=== PATIENT | female | born 1985 ===

== ENCOUNTER 2018-07-14 14:37 | Emergency (ER) | payer OTHER ==
--- NOTE | 2018-07-14 14:47 | C.PDOC ---
History Of Present Illness 32 y/o female, [employer] employee, presents to the ER for evaluation of right hand laceration sustained while she was working today. Patient states that she was changing an [employer] pump when it cut her right hand 1st digit. Hemostasis achieved at the time of injury. She notes that she went to employee health where she received Bacitracin and band aid. She was told to come to the ER for tetanus vaccination. Unknown last tetanus. Denies having weakness, numbness, parasthesias, and lacerations elsewhere. Time Seen by Provider: 07/14/18 14:42 Chief Complaint (Nursing): Abnormal Skin Integrity History Per: Patient History/Exam Limitations: no limitations Onset/Duration Of Symptoms: Hrs Current Symptoms Are (Timing): Still Present Severity: Moderate Past Medical History Reviewed: Historical Data, Nursing Documentation, Vital Signs - Medical History PMH: No Chronic Diseases Other Surgeries: Hx of surgeries Family History: States: No Known Family Hx Review Of Systems Except As Marked, All Systems Reviewed And Found Negative. Constitutional: Negative for: Fever, Chills Eyes: Negative for: Vision Change Cardiovascular: Negative for: Chest Pain, Palpitations, Light Headedness Respiratory: Negative for: Cough, Shortness of Breath Gastrointestinal: Negative for: Nausea, Vomiting, Abdominal Pain Musculoskeletal: Negative for: Neck Pain, Back Pain, Hand Pain Skin: Positive for: Other (right hand laceration) Neurological: Negative for: Weakness, Numbness, Headache, Dizziness Physical Exam - Physical Exam Appears: Well, Non-toxic, No Acute Distress Skin: Normal Color, Warm, Dry, Other ( 1 cm superficial laceration to volar aspect of distal phalanx of right hand 1st digit) Head: Atraumatic, Normacephalic Eye(s): bilateral: Normal Inspection, PERRL, EOMI Nose: Normal Oral Mucosa: Moist Neck: Normal, Normal ROM, Supple Chest: Symmetrical Cardiovascular: Rhythm Regular Respiratory: Normal Breath Sounds Extremity: Normal ROM, No Tenderness, Capillary Refill (< 2 seconds), No Deformity, No Swelling, Other (see skin exam) Pulses: Left Radial: Normal, Right Radial: Normal Neurological/Psych: Oriented x3, Normal Speech, Normal Motor, Normal Sensation Gait: Steady Medical Decision Making Medical Decision Making: Plan: --Tdap --Bacitracin --Wound dressing Laceration is superficial, involving only the epidermis, no active bleeding, no indication for suture or dermabond repair. Wound dressed by nurse Bedoya. Diagnostic testing results and plan of care discussed with patient. Strict instructions given regarding prescription use, importance of followup, and s igns/symptoms to return to ER including worsening pain, numbness, weakness, paresthesias, or any other new/worsening symptoms. Pt verbalized understanding of discussion. Patient is A&Ox3, ambulating with steady gait, with vital signs stable for discharge. Disposition - Disposition Referrals: [facility] at [facility] [Outside] Disposition: HOME/ ROUTINE Disposition Time: 14:50 Condition: IMPROVED Additional Instructions: Keep wound clean and dry Followup with primary doctor within 2 days Return to ER for any signs of infection or other new/worsening symptoms Instructions: Wound Care (DC) Forms: General Discharge Instructions, [facility] ([place]) - Clinical Impression Clinical Impression: Need for tetanus booster, Laceration of finger - PA / [employer] / Resident Statement MD/DO has reviewed & agrees with the documentation as recorded. - Scribe Statement The provider has reviewed the documentation as recorded by the Nereydaibe Marci Mitchell Provider Attestation All medical record entries made by the Scribe were at my direction and personally dictated by me. I have reviewed the chart and agree that the record accurately reflects my personal performance of the history, physical exam, medical decision making, and the department course for this patient. I have also personally directed, reviewed, and agree with the discharge instructions and disposition.
[2018-07-14 14:48] VITALS: BP 132/84; RESP 18; TEMP 98; O2SAT 96
[2018-07-14] MEDS ORDERED: Tdap Vaccine 0.5 ml Vial (10-64 yrs) IM ONE ×2 (14:49→14:58)
[2018-07-14] MEDS ORDERED: Bacitracin 500 Units/gm Oint Foilpak UD TOP ONE (14:49)
[2018-07-14 14:53] VITALS: PULSE 90
== END 2018-07-14 15:05 | disposition home or self-care (01) ==
LOC: C.ER 14:37
DX: S61.011A Laceration without foreign body of right thumb without damage to nail, initial encounter (principal); W45.8XXA Other foreign body or object entering through skin, initial encounter; Y92.239 Unspecified place in hospital as the place of occurrence of the external cause; Y99.0 Civilian activity done for income or pay